=== PATIENT | female | born 1950 | race African-American/Black ===

== ENCOUNTER 2020-11-28 07:38 | Emergency (ER) | payer MEDICARE, BC ==
[~2020-11-28] VITALS: Ht 172.7 cm; Wt 82.0 kg
[2020-11-28] MEDS ORDERED: PIPERACILLIN/TAZOBACTAM 3.375GM/50ML PREMIX IV ONE (08:00)
[2020-11-28] MEDS ORDERED: VANCOMYCIN 1 G PREMIX 200 ML IV SCH (08:00)
[2020-11-28] MEDS ORDERED: PIPERACILLIN/TAZ 3.375G PREMIX 50 ML IV SCH (08:15)
[2020-11-28 08:45] LABS: BASOPHILS % 1.5 % (0.0-2.0); EOSINOPHILS % 1.5 % (0.0-5.0); HEMATOCRIT. 38.2 % (36.0-48.0); LYMPHOCYTES % 38.2 % (20.0-50.0); MEAN CORPUSCULAR HEMOGLOBIN 22.7 pg (28.0-32.0); MEAN CORPUSCULAR VOLUME 72.4 fL (81.0-99.0); MEAN PLATELET VOLUME 8.3 fl (7.4-10.4); MONOCYTES % 8.9 % (2.0-8.0); NEUTROPHILS % 49.9 % (40.0-76.0); PLATELET 277 x1000/uL (130-400); RED BLOOD CELL COUNT 5.27 mill/uL (4.2-5.4); RED CELL DISTRIBUTION WIDTH 15.4 % (11.6-14.6)
[2020-11-28 08:55] LABS: CHLORIDE 105 mEq/L (98-107)
[2020-11-28 08:57] LABS: PARTIAL THROMBOPLASTIN TIME 27.8 sec (23.4-31.0); PROTHROMBIN TIME 11.1 sec (9.6-11.0)
[2020-11-28] MEDS ORDERED: KETOROLAC 15MG/ML VIAL IV ONE (09:30)
[2020-11-28] MEDS ORDERED: DOXY100T2 MT (11:35)
[2020-11-28] MEDS ORDERED: CEPH500T MT (11:35)
[2020-11-28 11:40] VITALS: BP 117/83
== END 2020-11-28 11:43 | disposition home or self-care (01) ==
LOC: ER 07:38
DX: L03.116 Cellulitis of left lower limb (principal); I10 Essential (primary) hypertension; Z85.048 Personal history of other malignant neoplasm of rectum, rectosigmoid junction, and anus; Z98.890 Other specified postprocedural states
CPT/HCPCS: 36415; 73590; 73630; 80048; 83605; 84145; 85025; 85610; 85730; 87040; 87086; 93971; 96365; 96367; 99285; J2543; J3370